=== PATIENT | female | born 2000 ===

== ENCOUNTER 2023-11-04 14:52 | Outpatient (REF) | payer BC, SELFPAY ==
[2023-11-04 14:34] LABS: HCT 44.7 % (36.0-46.0); HGB 14.4 g/dL (11.2-15.7); MCH 28.5 pg (27.0-33.0); MCHC 32.2 % (32.0-36.0); MCV 88 fL (80-95); MPV 10.6 fL (8.0-11.0); Platelet Count 203 10^3/uL (130-400); RBC 5.06 10^6/uL (3.93-5.22); RDW 12.9 % (11.7-14.6); RDW-SD 42.1 fL; WBC 7.09 10^3/uL (4.4-10.8)
[2023-11-04 21:20] LABS: ALT 57 U/L (14-59); AST 36 U/L (15-37); Albumin 4.2 g/dL (3.4-5.0); Alkaline Phosphatase 66 U/L (46-116); Anion Gap 12.6 mmol/L (3-11); BUN 10 mg/dL (7-18); Bilirubin, Total 0.5 mg/dL (0.2-1.0); CO2 23.4 mmol/L (21.0-32.0); CREATININE 0.8 mg/dL (0.55-1.02); Calcium 9.3 mg/dL (8.5-10.1); Chloride 106 mmol/L (98-107); Estimated GFR 105.45 (mL/min/1.73m2); Glucose 96 mg/dL (74-106); Potassium 4.2 mmol/L (3.5-5.1); Sodium 142 mmol/L (136-145); Total Protein 7.2 g/dL (6.4-8.2)
== END 2023-11-04 14:53 | disposition home or self-care (01) ==
LOC: NCHCN 14:52
PROVIDERS: Visit Provider Family Medicine
DX: Z94.4 Liver transplant status (principal)
CPT/HCPCS: 80053; 85027